=== PATIENT | male | born 1960 | race African-American/Black ===

== ENCOUNTER 2017-07-12 21:23 | Emergency (ER) | payer MEDICAID ==
[~2017-07-12] VITALS: Ht 180.3 cm; Wt 75.0 kg
[2017-07-12 21:34] VITALS: BP 191/104; PULSE 136; RESP 18
[2017-07-12] MEDS ORDERED: LIDOCAINE 1%/EPINEPHrine 1:100,000 SOLN 20 ML VIAL ONE (21:37)
[2017-07-12] MEDS ORDERED: LIDOCAINE 1%/EPINEPHrine 1:100,000 SOLN 20 ML VIAL INFIL ONE (22:00)
[2017-07-12] MEDS ORDERED: SODIUM CHLOR 0.9% 1000 ML INJ 1,000 ML IV ONE ×2 (22:00→23:45)
[2017-07-12 22:08] LABS: AUTOMATED NEUTROPHIL # 2.8 TH/MM3 (1.8-7.7); BASOPHIL % 0.7 % (0.0-2.0); EOSINOPHIL # 0.2 TH/MM3 (0-0.4); EOSINOPHIL % 2.2 % (0.0-4.0); HEMATOCRIT 43.5 % (39.0-51.0); HEMO FLAGS DIFF FINAL; LYMPH % 43.5 % (9.0-44.0); LYMPHOCYTE # 3.1 TH/MM3 (1.0-4.8); MEAN CELL VOLUME 80.6 FL (80.0-100.0); MEAN CORPUSCULAR HEMOGLOBIN 26.3 PG (27.0-34.0); MEAN CORPUSCULAR HGB CONC 32.6 % (32.0-36.0); MONO % 14.1 % (0.0-8.0); NEUT % 39.5 % (16.0-70.0); PLATELET COUNT 132 TH/MM3 (150-450); RED CELL DISTRIBUTION WIDTH 15.4 % (11.6-17.2); WHITE BLOOD COUNT 7.2 TH/MM3 (4.0-11.0)
[2017-07-12 22:19] VITALS: BP 184/94; PULSE 129; RESP 17; O2SAT 99
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
[2017-07-12 22:32] LABS: BICARBONATE 22.5 MEQ/L (21.0-32.0); POTASSIUM 3.5 MEQ/L (3.5-5.1)
[2017-07-12] MEDS ORDERED: LORazepam 2 MG/ML VIAL IV PUSH ONE (23:45)
[2017-07-13 00:44] VITALS: BP 182/81; PULSE 136; RESP 18; O2SAT 97
--- NOTE | 2017-07-13 13:03 | EKG ---
Date Performed: 07/12/2017 Time Performed: 21:36:33 PTAGE: 57 years EKG: SINUS TACHYCARDIA NONSPECIFIC ST WAVE CHANGE ABNORMAL RHYTHM ECG NO PREVIOUS TRACING DOCTOR: Franko Harmon Interpretating Date/Time 07/13/2017 13:02:09
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
== END 2017-07-13 00:52 | disposition left against medical advice (07) ==
LOC: NEPC 21:23
DX: S09.90XA Unspecified injury of head, initial encounter (principal); S01.01XA Laceration without foreign body of scalp, initial encounter; R00.0 Tachycardia, unspecified; R94.31 Abnormal electrocardiogram [ECG] [EKG]; Z72.0 Tobacco use; Y09 Assault by unspecified means
CPT/HCPCS: 12001; 70450; 72125; 80048; 85025; 93005; 99285; J7030